=== PATIENT | female | born 1950 | race Two or more races ===

== ENCOUNTER 2022-01-25 05:18 | Day surgery (SDC) | payer OTHER ==
[~2022-01-25 05:18] MED LIST: ALTOPREV40 MG PO; APRESOLINE 10MG10 MG PO; CATAFLAN PO; DIOVAN HCT 160-1 TA1 PO; GABAPEN PO; MACROBID 100 M100 MG PO; TOPROL XL50 M1 PO; ULTRACET PO; [UNRECOGNIZED DRUG - OTHER] PO
[2022-01-25] MEDS ORDERED: MACROBID 100 M100 MG PO (10:39)
[2022-01-25] MEDS ORDERED: ULTRACET PO (10:40)
== END 2022-01-25 13:05 | disposition home or self-care (01) ==
LOC: CIR.AMB 05:18
PROVIDERS: ATTEND Obstetrics & Gynecology Gynecology
DX: N81.11 Cystocele, midline (principal); Z20.822 Contact with and (suspected) exposure to COVID-19; I10 Essential (primary) hypertension; E78.5 Hyperlipidemia, unspecified